=== PATIENT | female | born 1975 | race Caucasian/White ===

== ENCOUNTER → 2017-08-09 09:38 | Outpatient (CLI) | payer MEDICAID, SELFPAY ==
--- NOTE | 2017-08-09 09:44 | XR_ITS ---
XR hand LT min 3V, XR hand RT min 3V Ordering Physician: Issa Flaherty MD Patient Age: 42 years: Female HISTORY: ITS.REASON: BILAT HAND PAIN HISTORY of carpal tunnel with corrective surgery. Pain at the first digit particularly notable TECHNIQUE: 3 views RIGHT AND LEFT hand COMPARISON :None RIGHT HAND is intact with no fracture evident. Joint spaces well-maintained. No erosions. Satisfactory relationships. Subchondral cystic areas seen at the head of the third metacarpal. Incidental observation but nonspecific feature. Small bone island at the head of second and fifth metacarpal. Not of concern . LEFT HAND appears intact with no fracture nor dislocation. No erosions. Joint spaces well-maintained bones well mineralized. Only Question some early degenerative changes at the first carpal metacarpal joint Wrist included bilaterally and grossly unremarkable, partially imaged with the visualized right & left hand studies. If desired evaluate carpal tunnel osseous contours a carpal tunnel view may be of benefit IMPRESSION-------- -- Right and left hand intact. With no significant appearing findings. Very Minor observations in in text. Question some scant very early degenerative changes at the first carpal-metacarpal joint bilateral.. Index finger unremarkable bilaterally.
== END ==
PROVIDERS: PCP Family Medicine; Visit Provider Family Medicine
DX: M79.641 Pain in right hand (principal); M79.642 Pain in left hand
CPT/HCPCS: 73130

== ENCOUNTER → 2018-04-21 08:20 | Outpatient (CLI) | payer MEDICAID, SELFPAY ==
--- NOTE | 2018-04-21 08:23 | CA_ITS ---
PROCEDURE: 2-D M-mode and color Doppler study INDICATIONS FOR THE TEST: Chest pain COPD Heart Murmur Tobacco Smoking Palpitations Fatigue Syncope EdemaX Hypertension Diabetes Mellitus Rheumatic Fever SOBXDOEXObesityXHyperlipidemia Family History HD Additional History PATIENT INFORMATION HEIGHT: 65 WEIGHT:240 GENDER: Female B/P:136/80 2-D/M-MODE INTERPRETATION: 2-D MEASUREMENTS OBSERVED VALUES IN CMS Right Ventricular Dimension (RVDd) 1.6 Interventricular Septum (Thickness)(IVsd) .8 Left Ventricular Internal Dimensions(LVIDd) 5.7 Left Ventricular Posterior Wall (Thickness)(LVPWd) 1.0 Aortic Root 3.6 Aortic Cusp Separation 2.0 Left Atrial Dimensions (LAD) 2.5 2D 1. Left atrium is normal size, left ventricle is normal size, there is no concentric left ventricular hypertrophy, visually estimated ejection fraction 55% with no regional wall motion abnormality. 2. The right atrium and right ventricle are normal size and contractility. 3. The aortic, mitral and tricuspid valve are grossly normal. 4. The pulmonic valve is poorly visualized. 5. No significant pericardial effusion noted. DOPPLER INTERROGATION: Doppler interrogation of the aortic, mitral and tricuspid valvular presence of mild mitral and tricuspid regurgitation, tricuspid regurgitation jet velocity is inadequate for calculation of the right ventricular systolic pressure, diastolic parameters are inconclusive. CONCLUSION: 1. Normal left ventricular size, preserved left ventricular systolic function, visually estimated ejection fraction of 55% with no regional wall motion abnormality, diastolic parameters are inconclusive. 2. Mild mitral and tricuspid regurgitation 3. No significant pericardial effusion noted.
== END ==
PROVIDERS: PCP Emergency Medicine; Visit Provider Emergency Medicine
DX: R06.02 Shortness of breath (principal); M79.89 Other specified soft tissue disorders
CPT/HCPCS: 93306

== ENCOUNTER 2018-05-03 16:54 | Outpatient (RCR) | payer MEDICAID, SELFPAY | END 2018-05-03 16:55 | disposition home or self-care (01) | LOC: PT 16:54 | PROVIDERS: Visit Provider Nurse Practitioner Family | DX: M79.641 Pain in right hand (principal) | CPT/HCPCS: 97760 ==

== ENCOUNTER → 2018-09-05 12:25 | Outpatient (CLI) | payer MEDICAID, SELFPAY | PROVIDERS: PCP Family Medicine; Visit Provider Otolaryngology Otolaryngology/Facial Plastic Surgery | DX: G47.33 Obstructive sleep apnea (adult) (pediatric) (principal) | CPT/HCPCS: 95806 ==

== ENCOUNTER → 2018-10-12 11:39 | Outpatient (CLI) | payer MEDICAID, SELFPAY ==
--- NOTE | 2018-10-12 11:46 | XR_ITS ---
XR foot RT min 3V HISTORY: ITS.REASON: RT FOOT PAIN ORDERING PHYSICIAN: Makenzie Jin APRN PATIENT AGE: 43 years COMPARISON: None FINDINGS: No fracture or dislocation. No lytic or blastic change. There is normal mineralization.. The joint spaces are well-preserved. No significant degenerative/arthritic changes. No erosive changes evident. IMPRESSION: Negative, no acute finding
--- NOTE | 2018-10-12 11:46 | XR_ITS ---
XR ankle RT min 3V HISTORY: ITS.REASON: RT ANKLE PAIN ORDERING PHYSICIAN: Makenzie Jin APRN PATIENT AGE: 43 years Comparison: None FINDINGS: No fracture or dislocation. No lytic or blastic change. There is normal mineralization.. The joint spaces are well-preserved. No significant degenerative/arthritic changes. No erosive changes evident. IMPRESSION: Negative ankle, no acute finding
== END ==
PROVIDERS: PCP Family Medicine; Visit Provider Nurse Practitioner Family
DX: M25.571 Pain in right ankle and joints of right foot (principal); M79.671 Pain in right foot
CPT/HCPCS: 73610; 73630

== ENCOUNTER → 2019-05-23 16:51 | Outpatient (CLI) | payer OTHER, SELFPAY ==
--- NOTE | 2019-05-23 | XR_ITS ---
PROCEDURE: XR CHEST 2V CLINICAL HISTORY: BRONCHITIS Cough COMPARISON: CXR CHEST(2 VIEWS-NOT PORTABLE) from 10/30/2016 CXR CHEST(2 VIEWS-NOT PORTABLE) from 02/02/2017 CXR CHEST(2 VIEWS-NOT PORTABLE) from 04/05/2017 CXR CHEST(2 VIEWS-NOT PORTABLE) from 04/13/2017 FINDINGS: The cardiomediastinal silhouette and pulmonary vascularity are within normal limits. The lungs are clear without infiltrates, suspicious nodules, or pleural effusions. No acute bony abnormalities. IMPRESSION: No acute findings. Dictated by: Sheldon Kim MD 05/23/2019 20:19 Electronically signed by Sheldon Kim MD in [place] 05/23/2019 20:19
== END ==
PROVIDERS: PCP Nurse Practitioner Family; Visit Provider Nurse Practitioner Family
DX: J40 Bronchitis, not specified as acute or chronic (principal)
CPT/HCPCS: 71046

== ENCOUNTER → 2019-09-20 13:35 | Outpatient (CLI) | payer OTHER, SELFPAY ==
--- NOTE | 2019-09-20 13:38 | XR_ITS ---
PROCEDURE: XR LUMBAR SPINE MIN 4V CLINICAL INDICATION: ACUTE MIDLINE LBP COMPARISON: No exams were available for comparison FINDINGS: There is no acute fracture or dislocation. Mild facet sclerosis is seen on the left at L5-S1. Disc space heights are preserved. IMPRESSION: Mild degenerative facet disease on the left at L5-S1. Dictated by: Thor Omalley 09/20/2019 14:34 Electronically signed by Thor Omalley in [place] 09/20/2019 14:34
== END ==
PROVIDERS: PCP Family Medicine; Visit Provider Family Medicine
DX: M54.5 Low back pain (principal)
CPT/HCPCS: 72110

== ENCOUNTER → 2020-03-26 11:32 | Outpatient (CLI) | payer OTHER, SELFPAY ==
--- NOTE | 2020-03-26 11:37 | XR_ITS ---
PROCEDURE: XR HIP LT 2-3V W/PELVIS CLINICAL INDICATION: LEFT HIP PAIN COMPARISON: No exams were available for comparison FINDINGS: No fracture or dislocation is evident. No significant degenerative change. No lytic or blastic change. Unremarkable soft tissues. IMPRESSION: No acute findings. Dictated by: Sheldon Kim MD 03/26/2020 12:58 Sheldon Kim MD in [place] 03/26/2020 12:58
== END ==
PROVIDERS: PCP Family Medicine; Visit Provider Family Medicine
DX: M25.552 Pain in left hip (principal)
CPT/HCPCS: 73502

== ENCOUNTER 2020-05-02 11:00 | Outpatient (RCR) | payer OTHER, SELFPAY ==
--- NOTE | 2020-04-10 12:53 | HMH.PTOPEV ---
PT Outpatient Evaluation Rehab PT Outpatient Evaluation Start: 04/10/20 11:36 Freq: Status: Active Protocol: Document 04/10/20 11:36 [id number] (Rec: 04/10/20 12:03 PDESEROUX [id number]) Electronically Signed By Stefan Silvestre, PT 04/10/20 11:36 Outpatient Therapy Subjective History Subjective History Pt. is a 45 year old female who presents to Outpatient PT clinic w/ complaints of chronic and constant L hip(circumferential ) P! of insidious onset 3-4 months ago. Pt. reports her hip had started to give out on her 2 months ago. Pt. describes symptoms as a dull to sharp ache that starts in the groin and wraps around her hip laterally then shoots inferiorly and laterally to the knee. Pt. reports her surgeon is 98% sure she has a labral tear. Pt. does report some symptom relief post injection in L hip grtr. trochanteric bursae. Recent diagnostic imaging(X-ray) negative per pt. report. Pt. RTMD in 4 wks. from 04/05/20. Current medications include Cymbalta, Clonazepam, Bioflex, Reglan, Mulit-Vitamin, and Probiotics. PMH includes LBP!, Hysterectomy, RLE knee ATS surgeries x 3, R hand Carpal Tunnel, Cholecystectomy, Hiatal Hernia Surgery, and Mitral valve prolapse. Chief Complaint Pain,Gives out/Unstable, Paresthesia Symptom Type Ache,Dull,Tingling Symptoms Relieved By Nothing Symptoms Aggravated By Sitting,Standing,Physical Activity,Twisting,Walking, Lifting Prior Functional Limitations None Current Functional Limitations Lifting,Dressing,Standing, Sitting,Squatting,Recreation Activity,Walking Symptom Description Constant but Variable Level of pain today (0-10) 2 Pain scale - at its best (0-10) 1 Pain scale - at its worst (0-10) 10 Hip/Knee Eval Gait Observation
== END 2020-05-13 13:13 | disposition home or self-care (01) ==
LOC: PT.CARL 11:00
PROVIDERS: PCP Family Medicine; Visit Provider Orthopaedic Surgery
DX: M25.552 Pain in left hip (principal)
CPT/HCPCS: 97010; 97012; 97014; 97033; 97035; 97110; 97140; 97163; G0283

== ENCOUNTER → 2020-05-07 12:52 | Outpatient (CLI) | payer OTHER, SELFPAY ==
--- NOTE | 2020-05-07 12:53 | MR_ITS ---
PROCEDURE: MR HIP LT W CON CLINICAL INDICATION: LT hip pain Left hip pain ? labral tear of left hip. Pt also c/o weakness of left when walking. Pt denies trauma or injury. Pror left hip xray done 03/26/2020 COMPARISON: DX,RF IR ARTHROGRAM HIP LT from 05/07/2020 TECHNIQUE: Routine MR hip arthrogram multiplanar multi echo sequences are performed with intra-articular contrast. Please see hip arthrogram report for technique. FINDINGS: No fracture or dislocation. No bone marrow edema. No evidence of avascular necrosis. Minimal osteoarthritic changes involving the hips with slight decrease in the hip joint spaces and minimal sclerosis of the acetabular roof. Along the anterior aspect of the superior labrum there is linear localization of contrast best demonstrated on coronal sequence series 4, image 10 consistent with a nondisplaced labral tear. No other significant anomalies are evident. The labrum has an otherwise unremarkable appearance There is some increased T2 signal along the greater trochanter on the left which could be related to either recent hip injection or trochanteric bursitis. No other significant anomalies are evident. IMPRESSION: 1. Minimal osteoarthritic changes of the hips. 2. Findings compatible with a small labral tear involving the anterior superior acetabular labrum 3. Possible left trochanteric bursitis. Dictated by: Sheldon Kim MD 05/10/2020 09:24 Sheldon Kim MD in [place] 05/10/2020 09:24
--- NOTE | 2020-05-07 12:57 | IR_ITS ---
PROCEDURE: IR ARTHROGRAM HIP LT CLINICAL INDICATION: LEFT HIP PAIN Left hip pain, possible labral tear COMPARISON: CR XR HIP LT 2-3V W/PELVIS from 03/26/2020 FINDINGS: Technique: Following obtaining informed consent and time-out procedure with fluoroscopic guidance and local anesthesia with 1 percent buffered lidocaine, a 22 gauge spinal needle was inserted into the shoulder joint capsule via the anterior approach. Approximately 10 mL of a 50: 50 mixture of Optiray 320, gadolinium, and 1 %lidocaine was injected into the shoulder joint. The patient tolerated the procedure well without evidence of immediate complication. Post exercise images were then obtained. The patient was then taken to MRI where post arthrogram images were obtained. There is a normal localization of contrast within the left hip joint capsule with no evidence of extravasation. The contrast flowed freely. IMPRESSION: Uneventful left hip arthrogram with fluoroscopic guidance Dictated by: Sheldon Kim MD 05/07/2020 15:25 Sheldon Kim MD in [place] 05/07/2020 15:25
== END ==
PROVIDERS: PCP Family Medicine; Visit Provider Orthopaedic Surgery
DX: M25.552 Pain in left hip (principal)
CPT/HCPCS: 73525; 73722

== ENCOUNTER → 2020-05-21 12:45 | Outpatient (CLI) | payer OTHER, SELFPAY ==
--- NOTE | 2020-05-21 12:50 | MR_ITS ---
PROCEDURE: MR LUMBAR SPINE WO CON CLINICAL INDICATION: LUMBAR BACK PAIN LBP WORSE ON LT SIDE. LT LEG PAIN. SYMPTOMS XYRS. NO INJURY. PRIOR X-RAY 09-20-19 COMPARISON: DX XR LUMBAR SPINE MIN 4V from 09/20/2019 TECHNIQUE: Standard multiplanar multiecho sequences are performed without contrast. 3-D MIP and myelographic images are also rendered and reviewed FINDINGS: There is normal alignment. The spinal cord ends at the L1 level. L1-L2: Unremarkable. L2-L3: Unremarkable. L3-L4: Unremarkable. L4-5: There is some mild disc desiccation with minimal bulging disc along with facet and ligamentum hypertrophy with mild bilateral foraminal narrowing. L5-S1: Degenerative disc disease with mild bulging disc with facet and ligamentum hypertrophy and moderate bilateral foraminal narrowing No extruded herniated disc or canal stenosis. IMPRESSION: 1. L4-5: There is some mild disc desiccation with minimal bulging disc along with facet and ligamentum hypertrophy with mild bilateral foraminal narrowing. 2. L5-S1: Degenerative disc disease with mild bulging disc with facet and ligamentum hypertrophy and moderate bilateral foraminal narrowing 3. No extruded herniated disc or canal stenosis. Dictated by: Sheldon Kim MD 05/23/2020 13:40 Sheldon Kim MD in [place] 05/23/2020 13:40
== END ==
PROVIDERS: PCP Family Medicine; Visit Provider Family Medicine
DX: M54.16 Radiculopathy, lumbar region (principal)
CPT/HCPCS: 72148; 76376

== ENCOUNTER → 2020-05-24 15:57 | Outpatient (CLI) | payer OTHER, SELFPAY | PROVIDERS: PCP Physician Assistant; Visit Provider Physician Assistant | DX: Z20.828 Contact with and (suspected) exposure to other viral communicable diseases (principal); U07.1 COVID-19 | CPT/HCPCS: U0003 ==

== ENCOUNTER → 2020-07-25 16:41 | Outpatient (CLI) | payer OTHER, SELFPAY ==
[2020-07-25 18:48] LABS: Basophils # 0.1 K/mm3 (0-0.2); Basophils % 0.5 % (0.1-2.0); Eosinophils # 0.1 K/mm3 (0.0-0.4); Eosinophils % 1.3 % (0.1-12.0); Hematocrit 43.4 % (37.0-47.0); Hemoglobin 14.2 g/dL (12.2-16.2); Lymphocytes # 3.2 K/mm3 (0.7-4.5); Lymphocytes % 37.3 % (10-50); Mean Corpuscular HGB Conc 32.8 g/dL (31.8-35.4); Mean Corpuscular Hemoglobin 34.1 pg (27.0-31.2); Mean Corpuscular Volume 104.2 fl (81-99); Mean Platelet Volume 7.3 fl (7.4-10.4); Monocytes # 0.5 K/mm3 (0.1-1.0); Monocytes % 5.7 % (1.7-9.3); Neutrophils # 4.7 K/mm3 (1.8-7.8); Neutrophils % 55.1 % (37.0-80.0); Platelet Count 325 K/mm3 (142-424); Red Blood Count 4.16 M/mm3 (4.20-5.40); Red Cell Distribution Width 13.1 % (11.5-17.5); White Blood Count 8.5 K/mm3 (4.8-10.8)
[2020-07-25 19:30] LABS: Strep Scrn Group A (Rapid) Negative (Negative)
== END ==
PROVIDERS: PCP Physician Assistant; Visit Provider Physician Assistant
DX: Z20.822 Contact with and (suspected) exposure to COVID-19 (principal); U07.1 COVID-19; J02.9 Acute pharyngitis, unspecified
CPT/HCPCS: 36415; 85025; 87430; U0003

== ENCOUNTER → 2020-09-06 11:22 | Outpatient (CLI) | payer OTHER, SELFPAY | PROVIDERS: PCP Family Medicine; Visit Provider Obstetrics & Gynecology Gynecology | DX: Z01.818 Encounter for other preprocedural examination (principal); Z20.822 Contact with and (suspected) exposure to COVID-19 | CPT/HCPCS: U0003 ==

== ENCOUNTER 2020-11-13 09:00 | Outpatient (RCR) | payer OTHER, SELFPAY | END 2020-11-20 13:57 | disposition home or self-care (01) | LOC: PT.CARL 09:00 | PROVIDERS: PCP Family Medicine; Visit Provider Orthopaedic Surgery Adult Reconstructive Orthopaedic Surgery | DX: M16.12 Unilateral primary osteoarthritis, left hip; Z96.642 Presence of left artificial hip joint | CPT/HCPCS: 97010; 97110; 97163; 97164; 97530 ==

== ENCOUNTER → 2021-02-26 12:03 | Outpatient (CLI) | payer OTHER, SELFPAY | PROVIDERS: Visit Provider Orthopaedic Surgery Adult Reconstructive Orthopaedic Surgery | DX: Z01.812 Encounter for preprocedural laboratory examination (principal); Z11.52 Encounter for screening for COVID-19 | CPT/HCPCS: U0003 ==

== ENCOUNTER 2021-04-07 09:00 | Outpatient (RCR) | payer OTHER, SELFPAY | END 2021-05-08 15:54 | disposition home or self-care (01) | LOC: PT.CARL 09:00 | PROVIDERS: PCP Family Medicine; Visit Provider Orthopaedic Surgery Adult Reconstructive Orthopaedic Surgery | DX: M16.11 Unilateral primary osteoarthritis, right hip (principal); Z96.641 Presence of right artificial hip joint | CPT/HCPCS: 97110; 97116; 97163 ==

== ENCOUNTER → 2021-07-31 12:18 | Outpatient (CLI) | payer OTHER, SELFPAY | PROVIDERS: PCP Family Medicine; Visit Provider Plastic Surgery | DX: Z01.812 Encounter for preprocedural laboratory examination (principal); Z11.52 Encounter for screening for COVID-19; M18.11 Unilateral primary osteoarthritis of first carpometacarpal joint, right hand | CPT/HCPCS: C9803; U0003; U0005 ==

== ENCOUNTER 2021-09-03 11:41 | Emergency (ER) | payer OTHER, SELFPAY ==
[2021-09-03 13:29] VITALS: BP 128/95; PULSE 86; RESP 17; TEMP 36.8; O2SAT 98; BMI 44.4
--- NOTE | 2021-09-03 14:02 | HMH.EDUTC ---
[facility] [place] Clinical Impression: Sinusitis Qualifiers: Sinusitis location: unspecified location Chronicity: unspecified Qualified Code(s): J32.9 - Chronic sinusitis, unspecified Disposition: Home, Self-Care Condition on Discharge: Good Instructions: Sinusitis Additional Instructions: *Monitor Temp, Over the counter Motrin or Tylenol as directed/as needed Tylenol every 4 hours and Motrin every 6 hours (as long as your family doctor has told you that you can take it) for fever or pain. and straight to ER if unable to lower temp less than 101.0 after medication given *Warm salt water gargles may help to soothe the throat *Throat Lozenges *Warm fluids like tea with honey may help to soothe the throat *Sleep elevated *Humidifier/Vaporizer Take medication as prescribed Return if needed Follow up IMMEDIATELY for new or worsening symptoms or no Noticeable improvement over the next 48-72 hours. 911 for difficulty breathing or swallowing Prescriptions: Doxycycline Monohydrate [Doxycycline [place] 100mg Tab] 100 mg PO BID 7 Days #14 tab Transmission Status: Pending to [id number] methylPREDNISolone [Medrol 4mg tab] 4 mg PO DIRECTED #21 tab Transmission Status: Pending to [id number] Referrals: Ilya Lala MD [Primary Care Provider] - As needed Forms: Work/School Release Time of Disposition: 14:06 Medical Decision Making - Dawson Inquiry Pt receiving controlled substance: No Dawson was queried for this patient: No Vital Signs: 09/03/21 13:29 Temperature 98.3 F Temperature Source Oral Pulse Rate [Left] 86 Respiratory Rate 17 Blood Pressure [Right Arm] 128/95 H Blood Pressure Mean [Right Arm] 106 02 Sat by Pulse Oximetry 98 - Lab Data Lab results reviewed: Yes: I reviewed the patient's lab results. [facility] [place] - General Stated complaint: sore throat, congestion Time Seen by Provider: 09/03/21 14:02 Mode of Arrival: Ambulatory Source of Information: Patient Limitations: No Limitations Description of Symptoms (Recalled from Triage Doc. by RN): pt c/o congestion, nasal draiage, sinus pain, and a sore throat x3 days. HEENT Symptoms (Recalled from RN notes): Yes Resp Symptoms (Recalled from RN notes): No Skin Symptoms (Recalled from RN notes): No MS Symptoms (Recalled from RN notes): No Functional Status (Recalled from RN notes): wnl - History of Present Illness Provider Complaint: Patient states that she has been having sore throat, sinus pain and pressure along with drianage in the back of her throat States that it started about a week ago and has continued to get worse over the last 3 days So today she came in to get checked out - Related Data Home Medications Medication Instructions Recorded Confirmed Cetirizine HCl 10 mg PO DAILY 04/02/18 05/13/20 Duloxetine HCl 60 mg PO DAILY 04/02/18 05/13/20 Ergocalciferol (Vitamin D2) 400 unit PO DAILY 04/02/18 05/13/20 [Vitamin D] Linaclotide [Linzess] 290 mcg PO DAILY 04/02/18 05/13/20 Metformin HCl [Metformin HCl ER] 750 mg PO DAILY 04/02/18 05/13/20 Pantoprazole Sodium [Protonix 40mg 40 mg PO DAILY 04/02/18 05/13/20 tablet] Potassium Chloride [Klor-con 20 20 meq PO DAILY 04/02/18 05/13/20 mEq tablet] Topiramate [Trokendi Xr] 200 mg PO DAILY 04/02/18 05/13/20 Valacyclovir HCl [Valacyclovir] 1,000 mg PO DAILY 04/02/18 05/13/20 buPROPion HCL [Bupropion HCl Sr] 150 mg PO BID 04/02/18 05/13/20 clonazePAM [Clonazepam] 0.5 mg PO TIDP PRN 04/02/18 05/13/20 metronidazole 500 mg tablet PO 3 Days #6 tab 09/02/18 05/13/20 diclofenac sodium 1 % topical gel g TOPICAL 04/05/20 05/13/20 levothyroxine 50 mcg tablet 50 mcg PO tab 04/05/20 05/13/20 Previous Rx's Medication Instructions Recorded Doxycycline Monohydrate 100 mg PO BID 7 Days #14 tab 09/03/21 [Doxycycline Nueces 100mg Tab] methylPREDNISolone [Medrol 4mg 4 mg PO DIRECTED #21 tab 09/03/21 tab] Allergies Allergy/AdvReac Type Severity
[2021-09-03 14:11] LABS: UTC Strep Screen (Rapid) Negative (Negative)
[2021-09-03 14:26] VITALS: BP 0/0; PULSE 0; RESP 0; TEMP -17.7; TEMP 0
== END 2021-09-03 14:27 | disposition home or self-care (01) ==
PROVIDERS: Emergency Provider Nurse Practitioner; PCP Family Medicine
DX: J32.9 Chronic sinusitis, unspecified (principal); F41.8 Other specified anxiety disorders; Z88.1 Allergy status to other antibiotic agents; Z88.5 Allergy status to narcotic agent
CPT/HCPCS: 87880; 99212; G0463

== ENCOUNTER → 2021-09-11 19:46 | Outpatient (CLI) | payer OTHER, SELFPAY | PROVIDERS: PCP Family Medicine | DX: G47.30 Sleep apnea, unspecified (principal); R40.0 Somnolence; R06.83 Snoring | CPT/HCPCS: 95810 ==

== ENCOUNTER 2021-11-25 08:00 | Outpatient (RCR) | payer OTHER, SELFPAY | END 2021-11-25 16:15 | disposition home or self-care (01) | LOC: OT 08:00 | PROVIDERS: PCP Family Medicine; Visit Provider Plastic Surgery | DX: M18.11 Unilateral primary osteoarthritis of first carpometacarpal joint, right hand (principal) | CPT/HCPCS: 97010; 97014; 97035; 97110; 97140; 97164; 97165; 97530; G0283 ==

== ENCOUNTER 2022-01-12 16:31 | Emergency (ER) | payer OTHER, SELFPAY ==
[2022-01-12 16:32] VITALS: BP 169/108; PULSE 112; RESP 20; TEMP 36.9; O2SAT 97; BMI 45.6
[2022-01-12 16:41] VITALS: BMI 16.1
[2022-01-12 17:01] VITALS: BP 149/95; PULSE 107; O2SAT 96
--- NOTE | 2022-01-12 17:16 | XR_ITS ---
PROCEDURE INFORMATION: Exam: XR Right Knee Exam date and time: 01/12/2022 5:28 PM Age: 46 years old Clinical indication: Injury or trauma; Fall; Blunt trauma; Knee; Right TECHNIQUE: Imaging protocol: Radiologic exam of the Right knee. Views: 3 views. COMPARISON: CR (ANKLE AP, ANKLE, ANKLE AP) 10/12/2018 12:10 PM FINDINGS: Bones/joints: There is no evidence of acute fracture or dislocation. Joint spaces appear preserved. Soft tissues: No significant soft tissue edema. No subcutaneous emphysema or radiopaque foreign bodies. There is mild chondrocalcinosis involving the medial femoral tibial joint space. No joint effusion. IMPRESSION: No acute posttraumatic osseous injury.
--- NOTE | 2022-01-12 17:16 | XR_ITS ---
PROCEDURE INFORMATION: Exam: XR Left Ankle Exam date and time: 01/12/2022 5:24 PM Age: 46 years old Clinical indication: Injury or trauma; Fall; Blunt trauma; Ankle; Left; Injury date: 01/12/22 TECHNIQUE: Imaging protocol: Radiologic exam of the Left ankle. Views: 3 or more views. COMPARISON: CR (ANKLE AP, ANKLE, ANKLE AP) 10/12/2018 12:10 PM FINDINGS: Bones/joints: There is no evidence of acute fracture or dislocation. Joint spaces appear preserved. A side plate and 6 screws traverse the distal fibula, in near anatomic alignment. An additional screw which is not associated with the side plate is seen distally. Soft tissues: No significant soft tissue edema. No subcutaneous emphysema or radiopaque foreign bodies. A few small rounded radiodensities in the anterior soft tissues of the calf are consistent with soft tissue calcifications and may reflect venous vascular calcifications. IMPRESSION: 1. No acute posttraumatic osseous injury. 2. Postoperative changes involving the distal fibula.
--- NOTE | 2022-01-12 17:16 | XR_ITS ---
PROCEDURE INFORMATION: Exam: XR Left Knee Exam date and time: 01/12/2022 5:23 PM Age: 46 years old Clinical indication: Injury or trauma; Fall; Blunt trauma; Knee; Left; Injury date: 01/12/22 TECHNIQUE: Imaging protocol: Radiologic exam of the Left knee. Views: 3 views. COMPARISON: CR (ANKLE AP, ANKLE, ANKLE AP) 10/12/2018 12:10 PM FINDINGS: Bones/joints: There is no evidence of acute fracture or dislocation. Joint spaces appear preserved. Soft tissues: No significant soft tissue edema. No subcutaneous emphysema or radiopaque foreign bodies. No joint effusion. IMPRESSION: No acute posttraumatic osseous injury.
--- NOTE | 2022-01-12 17:17 | PC.NURSE ---
notified radiology of xray orderss
--- NOTE | 2022-01-12 17:34 | INFXCTL.NOTE ---
PT TO XR AT THIS TIME
--- NOTE | 2022-01-12 17:39 | PC.NURSE ---
PT RETURNED FROM XR PER WC AT THIS TIME
--- NOTE | 2022-01-12 17:58 | HMH.EDFALL ---
ED Disposition Clinical Impression: Left ankle sprain Qualifiers: Encounter type: initial encounter Involved ligament of ankle: other ligament Qualified Code(s): S93.492A - Sprain of other ligament of left ankle, initial encounter Disposition: Home, Self-Care Condition on Discharge: Good Referrals: Ilya Lala MD [Primary Care Provider] - - Critical Care Critical Care Time: No Attestation: On 01/12/22, the high probability of a clinically significant, sudden or life threatening deterioration of the following system(s) required my full and direct attention, intervention and personal management. The time I documented below is in addition to time spent performing reported procedures but includes the following listed in this critical care notation. Medical Decision Making - Dawson Inquiry Pt receiving controlled substance: No Dawson was queried for this patient: No Vital Signs: 01/12/22 16:32 01/12/22 17:01 01/12/22 18:00 Temperature 98.4 F Temperature Source Oral Pulse Rate 107 H 110 H Pulse Rate [Radial] 112 H Respiratory Rate 20 Blood Pressure 149/95 H 141/96 H Blood Pressure [Right Arm] 169/108 H Blood Pressure Mean 113 110 Blood Pressure Mean [Right Arm] 128 Blood Pressure Source [Right Arm] Automatic Cuff Blood Pressure Position [Right Arm] Sitting 02 Sat by Pulse Oximetry 97 96 96 Oxygen Delivery Method Room Air Orders (Tests/Meds): ED MEDICATIONS Discontinued Medications Generic Name Dose Route Start Last Admin Trade Name Freq PRN Reason Stop Dose Admin Acetaminophen 1,000 mg 01/12/22 17:57 01/12/22 18:02 Acetaminophen 500mg Tab PO 01/12/22 17:58 1,000 mg ONCE ONE Administration - Radiology Data #1 Image(s): Knee, Ankle (X-ray studies negative for fracture) Image Reviewed: Yes I reviewed the patient's radiology results Preliminary Findings: Normal/NAD X-ray studies were negative for any fracture Medical Decision Narrative: In review this is a 46-year-old who presents with left ankle and right knee pain. Hemodynamically stable and nontoxic-appearing. Patient does have pretty substantial swelling over the left lateral malleolus. She just has a abrasion over the right knee but will also x-ray to evaluate for underlying fracture. X-ray studies were negative for any acute fracture. I recommended symptomatic care over the next couple of days including rest, ice, compression, elevation. Recommended Tylenol and ibuprofen for pain control. She can follow-up with her PCP or orthopedics if her symptoms do not resolve to evaluate for possible soft tissue injury. Patient is agreeable with this plan. Stable for discharge. Return precautions given. Fall HPI - General Chief Complaint: Fall Stated Complaint: [id number] left ankle inj Time Seen by Provider: 01/12/22 16:50 Mode of Arrival: Wheelchair Limitations: No Limitations Description of Symptoms (Recalled from ER Triage Doc. by RN): PT FELL WHILE LEAVING HOSPITAL, FELL DOWN 2 STAIRS LANDING ON BILATERAL KNEES. ABRASION TO RIGHT KNEE AND TOP OF LEFT FOOT. REPORTS BILATERAL KNEE PAIN AND LEFT ANKLE PAIN - History of Present Illness HPI Narrative: Patient is a 46-year-old female with a past medical history of previous left ankle surgery who presents with left ankle pain. She says that she was walking earlier today when she had a ground-level fall. She rolled her left ankle and then landed on her right knee. She locates majority of her pain in her left ankle. She says that she has an abrasion over her right knee but says that that knee is not that painful. She was unable to ambulate afterwards due to pain in her left ankle. He says that she has noticed swelling as well. Pain is worse with range of motion. Better with rest. Denies any numbness or tingling. - Related Data Home Medications Medication Instructions Recorded Confirmed Cetirizine HCl 10 mg PO DAILY 04/02/18 05/13/20 [place]
[2022-01-12 18:00] VITALS: BP 141/96; PULSE 110; O2SAT 96
--- NOTE | 2022-01-12 18:05 | PC.NURSE ---
helped pt to bed out of the wheelchair per pt request. pt tolerated well.
--- NOTE | 2022-01-12 18:20 | PC.NURSE ---
ROUNDED ON PT AT THIS TIME, OFFERED BLANKET AND REPOSITIONING. PT DECLINES. CALL LIGHT WITHIN REACH
[2022-01-12 18:35] VITALS: BP 143/98; PULSE 94; RESP 20; TEMP 36.6; O2SAT 98
== END 2022-01-12 18:38 | disposition home or self-care (01) ==
PROVIDERS: Emergency Provider Student in an Organized Health Care Education/Training Program; PCP Family Medicine
DX: S93.492A Sprain of other ligament of left ankle, initial encounter (principal); S80.211A Abrasion, right knee, initial encounter; W10.9XXA Fall (on) (from) unspecified stairs and steps, initial encounter; Z88.1 Allergy status to other antibiotic agents; Z88.5 Allergy status to narcotic agent; F41.9 Anxiety disorder, unspecified; F32.A Depression, unspecified; G43.909 Migraine, unspecified, not intractable, without status migrainosus
CPT/HCPCS: 73562; 73610; 99283

== ENCOUNTER 2022-01-14 08:00 | Outpatient (RCR) | payer OTHER, SELFPAY ==
--- NOTE | 2021-10-14 11:30 | HMH.PTOPEV ---
PT Outpatient Evaluation Rehab PT Outpatient Evaluation Start: 10/14/21 11:14 Freq: Status: Active Protocol: Document 10/14/21 11:14 ALIVIA (Rec: 10/14/21 11:29 PROANN [id number]) Electronically Signed By Shaun Angela, PT 10/14/21 11:14 Outpatient Therapy Subjective History Subjective History Patient presents to outpatient PT with reports of chronic LBP with BLE radicular symptoms. I have fibromyalgia, but my back is the main thing that hurts me. Most recent imaging indicates L 4/5 L5/S1 disc bulges and DDD. Patient has previously been seen by PT with minimal improvements noted. This current referreal is for aquatic therapy. Patient does report that she gets some relief with lumbar mechanical traction. Comorbidities include hx of B EMIL, CMC arthroplasty, CTR, GERD, HTN, HL, L ankle ORIF and hypothyroidism. Chief Complaint Pain,Stiff,Paresthesia Symptom Type Ache,Throb Symptoms Relieved By Rest/Positioning,Prescription Meds Symptoms Aggravated By Standing,Physical Activity, Walking Prior Functional Limitations Lifting,Standing,Walking, Bending/Stooping Current Functional Limitations Lifting,Standing,Walking, Bending/Stooping Symptom Description Constant but Variable Level of pain today (0-10) 6 Pain scale - at its best (0-10) 5 Pain scale - at its worst (0-10) 9 Shoulder/Elbow Eval Shoulder Objective Measurements Shoulder ROM Bilateral full ROM shoulder exam standard bilateral Shoulder MMT Shoulder Strength Reason Not Measured WFL Elbow Objective Measurements Lumbopelvic Eval Posture Thoracic Spine Posture Standing Position Increased Kyphosis Lumbar Spine Posture Standing Position Increased Lordosis Assistive device Assistive Devices None / NA Palapation tenderness bilateral Lumbar/Sacral Palpation Findings Tenderness Lumbar/Sacral Palpation Overall Comment L4/5 L5/S1 3/4 Accessory Movement L4 bilateral L5 bilateral S1 bilateral Range of Motion Lumbar Spine ROM Reason Not Measured Within Functional Limits Manual Muscle Test Bilateral Knee Extension Strength Grade
--- NOTE | 2021-11-14 15:43 | HMH.RHREAS ---
Rehab Reassessment Rehab OP Re-assessment Start: 11/14/21 15:39 Freq: Status: Active Protocol: Document 11/14/21 15:39 ALIVIA (Rec: 11/14/21 15:42 ALIVIA [id number]) Electronically Signed By Shaun Angela, PT 11/14/21 15:39 Rehab Re-assessment Subjective Subjective Patient reports no significant change since start of care. Objective Objective Notes See evaluation Assessment Progress Assessment No Progress Assessment Notes This is the patient's first follow-up visit since initial evaluation secondary to insurance approval issues. She would benefit from continuing with skilled PT services to address functional limitations with all standing , walking, bending and lifting activities. Patient goals met None Goals Not Met All Revised Goals NA Plan Plan Continue with current POC. Frequency of Therapy 2x/week Duration of therapy 4 weeks. Time and Billing Re-Eval Time 15 Re-Eval Billing Units 1 PHYSICIAN CERTIFICATION: I certify the specified therapy services for Ana Estes are required, authorized, and reviewed every 30 days.
== END 2022-01-20 09:23 | disposition home or self-care (01) ==
LOC: PT.CARL 08:00
PROVIDERS: PCP Family Medicine; Visit Provider Family Medicine
DX: M79.7 Fibromyalgia (principal)
CPT/HCPCS: 20561; 97010; 97012; 97014; 97110; 97113; 97163; 97164; G0283

== ENCOUNTER → 2022-03-06 14:07 | Outpatient (CLI) | payer OTHER, SELFPAY ==
--- NOTE | 2022-03-06 14:18 | XR_ITS ---
FINAL REPORT CLINICAL HISTORY: PAIN, fall, lateral ankle pain COMPARISON: January 12, 2022 FINDINGS: LEFT ANKLE: Three views of the left ankle were obtained. There is postoperative change of the distal fibula with a sideplate and multiple screws. There is no acute fracture or dislocation. The joint spaces and mortise are intact. There are multiple anterior soft tissue calcifications. IMPRESSION: No acute bony abnormality. Reviewed, Interpreted and Dictated by Sanchez Salgado III, MD Transcribed by Asa Marques Authenticated and [facility]
== END ==
PROVIDERS: PCP Family Medicine; Visit Provider Family Medicine
DX: M25.572 Pain in left ankle and joints of left foot (principal)
CPT/HCPCS: 73610

== ENCOUNTER → 2022-03-18 07:37 | Outpatient (CLI) | payer OTHER, SELFPAY ==
--- NOTE | 2022-03-18 07:38 | MR_ITS ---
FINAL REPORT TECHNIQUE: Multiplanar MRI without gadolinium enhancement CLINICAL HISTORY: ankle pain left ankle pain after fall on january 12 and twisted ankle swelling pain in heel and lateral side of left foot hx of ankle surgery 2014 FINDINGS: Articular cartilage: No focal osteochondral defect Marrow signal: Significant artifact, probably related to fibular cortical plate. Remaining marrow signal is otherwise normal. Joint fluid: Physiologic Tendons: No evidence of tear Ligaments: Tibial fibular ligaments intact. Talofibular ligaments obscured by hardware. Deltoid ligament is normal. Plantar fascia: No evidence of tear or fasciitis. IMPRESSION: No acute findings although lateral portion of the ankle is somewhat compromised by hardware artifact. Reviewed, Interpreted and Dictated by Ilya Carpio MD Transcribed by Makenzie Lott Authenticated and [facility]
== END ==
PROVIDERS: PCP Family Medicine; Visit Provider Orthopaedic Surgery
DX: S93.402A Sprain of unspecified ligament of left ankle, initial encounter (principal)
CPT/HCPCS: 73721

== ENCOUNTER → 2022-08-31 12:35 | Outpatient (CLI) | payer OTHER, SELFPAY | PROVIDERS: PCP Family Medicine; Visit Provider Plastic Surgery | DX: M18.11 Unilateral primary osteoarthritis of first carpometacarpal joint, right hand (principal) | CPT/HCPCS: C9803; U0003; U0005 ==

== ENCOUNTER 2023-06-13 08:00 | Emergency (ER) | payer OTHER, SELFPAY ==
[2023-06-13 08:10] VITALS: BP 131/85; PULSE 88; RESP 19; TEMP 37; O2SAT 98; BMI 36.7
--- NOTE | 2023-06-13 08:23 | EXP.UTC ---
Discharge Plan Disposition Patient Disposition: Home, Self-Care Condition: Good Prescriptions Prescriptions: New azithromycin [Zithromax Z-Bert] 250 mg tablet See Rx Instructions .ROUTE .COMPLEX 5 Days Qty: 6 0RF Rx Instructions: For 250 mg dose pack: take 500 mg today (day 1), then 250 mg for 4 days (days 2-5) No Action cetirizine 10 mg tablet 10 mg PO DAILY Patient Comments: TAKE 1 TABLET BY MOUTH EVERY DAY metoprolol succinate 25 mg tablet extended release 24 hr 25 mg PO DAILY Patient Comments: TAKE 1 TABLET BY MOUTH EVERY DAY ergocalciferol (vitamin D2) 1,250 mcg (50,000 unit) capsule 1,250 mcg PO DAILY Patient Comments: TAKE 1 CAPSULE BY MOUTH ONCE WEEKLY valsartan 160 mg tablet 160 mg PO DAILY duloxetine 30 mg capsule,delayed release(DR/EC) 30 mg PO DAILY Patient Comments: TAKE 1 CAPSULE BY MOUTH EVERY DAY duloxetine 60 mg capsule,delayed release(DR/EC) 60 mg PO DAILY Patient Comments: TAKE 1 CAPSULE BY MOUTH EVERY DAY Linzess 290 mcg capsule 290 mcg PO DAILY Patient Comments: TAKE 1 CAPSULE BY MOUTH EVERY DAY Referrals Follow up/Referrals: Ilya Lala MD [Primary Care Provider] - See instructions Activity Restrictions/Add. Instructions Additional Instructions/Restrictions: *Monitor Temp, Over the counter Motrin or Tylenol as directed/as needed Tylenol every 4 hours and Motrin every 6 hours (as long as your family doctor has told you that you can take it) for fever or pain. and straight to ER if unable to lower temp less than 101.0 after medication given *Warm salt water gargles may help to soothe the throat *Throat Lozenges? *Warm fluids like tea with honey may help to soothe the throat? *Sleep elevated *Humidifier/Vaporizer Your throat swab was sent for culture. Those results are typically sent to your primary care. Be sure to follow up in 2-3 days with your family doctor/primary care physician if no improvement so they can review those result and treat if necessary. If you don?t have a primary care doctor, I recommend you get one but in the mean time, you will have to return to a walk in clinic Follow up IMMEDIATELY for new or worsening symptoms or no Noticeable improvement over the next 48-72 hours. 911 for difficulty breathing or swallowing Clinical Impressions Clinical Impression: Pharyngitis Instructions Patient Instructions: Sore Throat Discharge ED Provider: Ivy Toscano [facility] [place] HPI General Stated complaint: sore throat, cough Mode of Arrival: Ambulatory Source of Information: Patient Limitations: No Limitations Time Seen by Provider: 06/13/23 08:23 Description of Symptoms (Recalled from Triage Doc. by RN): PATIENT C/O SORE THROAT SINCE YESTERDAY HEENT Symptoms (Recalled from RN notes): Yes Resp Symptoms (Recalled from RN notes): No Skin Symptoms (Recalled from RN notes): No MS Symptoms (Recalled from RN notes): No Functional Status (Recalled from RN notes): WNL History of Present Illness Provider Complaint: Patient states that she started yesterday with sore throat States that today her throat was hurting worse and felt like she has strep throat so today she came in to get checked Related Data Home Medications Medication Instructions Recorded Confirmed cetirizine 10 mg tablet 10 mg PO DAILY 06/13/23 06/13/23 duloxetine 30 mg capsule,delayed 30 mg PO DAILY 06/13/23 06/13/23 release duloxetine 60 mg capsule,delayed 60 mg PO DAILY 06/13/23 06/13/23 release ergocalciferol (vitamin D2) 1,250 1,250 mcg PO DAILY 06/13/23 06/13/23 mcg (50,000 unit) capsule linaclotide 290 mcg capsule 290 mcg PO DAILY 06/13/23 06/13/23 (Linzess) metoprolol succinate 25 mg 25 mg PO DAILY 06/13/23 06/13/23 tablet,extended release 24 hr valsartan 160 mg tablet 160 mg PO DAILY 06/13/23 06/13/23 Previous Rx's Medication Instructions Recorded celestina
[2023-06-13 08:36] LABS: UTC Strep Screen (Rapid) Negative (Negative)
[2023-06-13 08:37] VITALS: BP 131/85; PULSE 88; RESP 19; TEMP 37; O2SAT 98
== END 2023-06-13 08:39 | disposition home or self-care (01) ==
PROVIDERS: Emergency Provider Nurse Practitioner; PCP Family Medicine
DX: J02.9 Acute pharyngitis, unspecified (principal); R05.9 Cough, unspecified
CPT/HCPCS: 87880; 99212; 99214; G0463